=== PATIENT | female | born 1995 | race Two or more races ===

== ENCOUNTER 2019-05-22 09:48 | Emergency (ER) | payer OTHER ==
[2019-05-22 10:13] VITALS: TEMP 98.3; BMI 24.3
--- NOTE | 2019-05-22 10:22 | PDOC ---
History of Present Illness - General Chief Complaint: Syncope/Near Syncope Stated Complaint: SYNCOPE Time Seen by Provider: 05/22/19 09:54 History Source: Patient Exam Limitations: No Limitations - History of Present Illness Initial Comments: 05/22/19 10:16 24 yo female pmh of Schizophrenia BIBA to the ED after a pre syncopal episode. Pt states she woke up at 8 am, felt nauseas, dizzy, had CP and looked pale with feelings of pre syncope (almost lost consciousness but did not). CP is non exertional, non radiating described as pressure. All symptoms lasted 20 min and self resolved. Pt denies LOC, GUSMAN, fall/trauma, ear pain, recent infection/ illness/travel, fhx or significant heart disease, fhx of sudden cardiac , F /C, SOB, abdominal pain, changes in bowel or bladder habits. LMP yesterday, on time, normal flow (not excessive). Of note, pt took her first dose of Abilify 10 mg last night. EMS report arriving BP in the the 90s systolic and HR in the 50s Past History - Past Medical History Allergies/Adverse Reactions: Allergies Allergy/AdvReac Type Severity Reaction Status Date / Time No Known Allergies Allergy Verified 05/22/19 10:04 Home Medications: Ambulatory Orders Aripiprazole [Abilify -] 10 mg PO HS 05/22/19 Benztropine Mesylate 1 mg PO HS 05/22/19 Divalproex [Depakote -] 1,000 mg PO HS 05/22/19 Asthma: Yes (as a child) COPD: No Psychiatric Problems: Yes (schiophrenia) - Suicide/Smoking/Psychosocial Hx Smoking History: Never smoked Have you smoked in the past 12 months: No Information on smoking cessation initiated: No Hx Alcohol Use: No Drug/Substance Use Hx: No Review of Systems - Review of Systems Constitutional: Yes: See HPI HEENTM: Yes: See HPI Respiratory: Yes: See HPI Cardiac (ROS): Yes: See HPI ABD/GI: Yes: See HPI : Yes: See HPI Musculoskeletal: Yes: See HPI Integumentary: Yes: See HPI Neurological: Yes: See HPI Psychiatric: Yes: Other (schizophrenia) *Physical Exam - Vital Signs Last Vital Signs Temp Pulse Resp BP Pulse Ox 98.3 F 58 L 18 103/57 L 98 05/22/19 09:59 05/22/19 09:59 05/22/19 09:59 05/22/19 09:59 05/22/19 09:59 - Physical Exam General Appearance: Yes: Nourished, Appropriately Dressed. No: Apparent Distress HEENT: positive: EOMI, THAD, Normal Voice, TMs Normal, Pharynx Normal, Hearing Grossly Normal. negative: Pale Conjunctivae, Photophobia, Scleral Icterus (R), Scleral Icterus (L), Pharyngeal Erythema, Nasal Congestion, Rhinorrhea, Sinus Tenderness Neck: positive: Supple. negative: Carotid bruit, Decreased range of motion, Lymphadenopathy (R), Lymphadenopathy (L) Respiratory/Chest: positive: Lungs Clear, Normal Breath Sounds. negative: Respiratory Distress, Accessory Muscle Use, Crackles, Rales, Rhonchi, Stridor, Wheezing Cardiovascular: positive: Regular Rhythm, S1, S2, Bradycardia. negative: Edema , JVD, Murmur Vascular Pulses: Dorsalis-Pedis (R): 4+, Doralis-Pedis (L): 4+ Gastrointestinal/Abdominal: positive: Flat, Soft. 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 negative: Facial Droop, Sensory Deficit, Confused, Disoriented ED Treatment Course - LABORATORY CBC & Chemistry Diagram: 05/22/19 10:34 05/22/19 10:34 Medical Decision Making - Medical Decision Making 05/22/19 10:27 24 yo female pmh of Schizophrenia BIBA to the ED after a pre syncopal episode. Pt states she woke up at 8 am, felt nauseas, dizzy, had CP and looked pale with feelings of pre syncope (almost lost consciousness but did not). CP is non exertional, non radiating described as pressure. All symptoms lasted 20 min and self resolved. Pt denies LOC, GUSMAN, fall/trauma, ear pain, recent infection/ illness/travel, fhx or significant heart disease, fhx of sudden cardiac , F /C, SOB, abdominal pain, changes in bowel or bladder habits. LMP yesterday, on time, normal flow (not excessive). Of note, pt took her first dose of Abilify 10 mg last night as prescribed (did not take more than 1 pill) EMS report arriving BP in the the 90s systolic and HR in the 50s vitals show HR 58 and BP 103 systolic Pt sitting up in bed texting, able to transfer from EMS stretcher without difficulty, NAD and states symptoms have resolved Due to concerning story for possible ACS, will do cardiac workup including EKG, CXR, trops and labs DDX INLT: ACS, new medication rxn, peripheral vertigo, electrolyte ab, anemia 05/22/19 11:38 called pts primary Psych, Dr. Evangelista Brice, not in office. Spoke with Therapist Bethany, states she will attempt to have a Psych may 29 at noon scheduled appointment but recommend seeing Psych NILES. Pt agrees with and understands plan and is safe for DC *DC/Admit/Observation/Transfer Diagnosis at time of Disposition: Dizziness - Discharge Dispostion Disposition: HOME - Referrals Referrals: Aiyana Lin MD [Primary Care Provider] - - Patient Instructions Printed Discharge Instructions: DI for Syncope in Adults (Fainting), DI for Dizziness-Nonvertigo Additional Instructions: Please see you Psychiatrist, Dr. Brice within the next 48 hours. You have a scheduled appointment on 05/29/2019 at 12 noon. Continue taking your home dosed medications as prescribed. See your Primary Doctor within the next 48 hours. Return to the ER for new or concerning symptoms including but not limited to: chest pain, headache, loss of consciousness, fevers, weakness, inability to eat or drink. Thank you - Post Discharge Activity
--- NOTE | 2019-05-22 10:42 | PDOC ---
Attending Attestation - Resident Resident Name: Blair Bender - ED Attending Attestation I have performed the following: I have examined & evaluated the patient, The case was reviewed & discussed with the resident, I agree w/resident's findings & plan, Exceptions are as noted - HPI HPI: 05/22/19 10:59 24 years old with past medical history significant for schizophrenia recent sudden in new medication presents ED with presyncopal episode this morning. Patient woke up stood up felt nauseous lightheaded with some substernal chest discomfort nonradiating nonexertional which was self-limiting resolved on its own. No history of previous. Patient currently completely asymptomatic. Symptoms were brief intermittent self-limiting seem to have been exacerbated by change in position ROS: A complete review of 10 out of 10 review of systems is taken and is negative apart from what is previously mentioned below and in the HPI. - Physicial Exam PE: 05/22/19 11:00 Vitals: Triage Vital signs reviewed General Appearance: no acute distress, well nourished well developed, Head: Atraumatic, Neck: Supple;No Nucal rigidity Chest Wall: Nontender Cardiac: Regular rate and rhythym, no murmurs, no rubs, no gallops, Lungs: Clear to auscultation bilateral, good air movement bilaterally, Abdomen: Soft, non distended, normal bowel sounds, non tender to palpation Extremities: Full range of motion to all extremities, no cyanosis, clubbing, or edema Skin: Warm and dry, no rashes or lesions, no rash, no petechiae Psych: normal mood, normal affect - Medical Decision Making 05/26/19 07:36 24 years old with lightheadedness positional this morning labs EKG all within normal limits patient feels much better. Patient did recently start Abilify. She will discuss with her doctor today or tomorrow whether she should discontinue this medication Findings, the need for follow-up and strict return instructions discussed patient. Heart Score/ECG Review - ECG Impressions Comment:: 05/22/19 11:01 EKG performed at 1020. Sinus rhythm [address] elevations no T-wave inversions. MD interval 156 QRS 94 QTc 470 Interpreted by me.
[2019-05-22] MEDS ORDERED: SODIUM CHLORIDE 1,000 ML IV STA (10:48)
[2019-05-22 10:55] LABS: BASO % 0.5 % (0-2.0); EOS % 4.3 % (0-4.5); HEMATOCRIT 32.5 % (32.4-45.2); HEMOGLOBIN 10.8 GM/dL (10.7-15.3); MCH 28.1 pg (25.7-33.7); MCHC 33.1 g/dl (32.0-36.0); MEAN CELL VOLUME 84.7 fl (80-96); MEAN PLT VOLUME 7.7 fl (7.5-11.1); MONO % 7.9 % (3.8-10.2); NEUT % 54.3 % (42.8-82.8); PLATELET COUNT 268 K/MM3 (134-434); RBC 3.83 M/mm3 (3.60-5.2); RDW 14.3 % (11.6-15.6); WHITE BLOOD COUNT 3.4 K/mm3 (4.0-10.0)
[2019-05-22 11:15] LABS: ALBUMIN 3.6 g/dl (3.4-5.0); BILIRUBIN,TOTAL 0.3 mg/dL (0.2-1); BLOOD UREA NITROGEN 9.2 mg/dL (7-18); CALCIUM 8.4 mg/dL (8.5-10.1); CREATININE 0.6 mg/dL (0.55-1.3); TOT PROT 7.3 g/dl (6.4-8.2)
--- NOTE | 2019-05-22 11:37 | EKG ---
Test Reason : Blood Pressure : / mmHG Vent. Rate : 054 BPM Atrial Rate : 054 BPM P-R Int : 156 ms QRS Dur : 094 ms QT Int : 496 ms P-R-T Axes : 033 058 051 degrees QTc Int : 470 ms SINUS BRADYCARDIA WITH SINUS ARRHYTHMIA OTHERWISE NORMAL ECG NO PREVIOUS ECGS AVAILABLE Confirmed by GAURAV HUYNH, ERNESTO ([id number]) on 05/22/2019 11:36:43 AM Referred By: Confirmed By:ERNESTO NOLASCO MD
[2019-05-22 13:53] VITALS: BP 98/51; PULSE 70
== END 2019-05-22 13:54 | disposition home or self-care (01) ==
LOC: JER 09:48
PROC: 3E0337Z Introduction of Electrolytic and Water Balance Substance into Peripheral Vein, Percutaneous Approach (ICD-10-PCS; principal; 2019-05-22)
DX: R55 Syncope and collapse (principal); R42 Dizziness and giddiness; R07.9 Chest pain, unspecified
CPT/HCPCS: 36415; 80053; 80164; 80299; 82550; 84484; 84703; 85025; 93005; 93010; 99283-25; J7030